=== PATIENT | male | born 1975 | race Caucasian/White ===

== ENCOUNTER 2018-06-05 12:19 | Emergency (ER) | payer SELFPAY ==
[2018-06-05 12:31] VITALS: BP 133/87
--- NOTE | 2018-06-05 14:01 | ER Document Report ---
ED Medical Screen (RME) - General Chief Complaint: Chest Pain Stated Complaint: CHEST PAIN Time Seen by Provider: 06/05/18 13:57 Mode of Arrival: Ambulatory Information source: Patient Notes: Patient is a 43-year-old male presented to the emergency department severe right sided chest pain is been ongoing for approximately 3 weeks. He also reports associated shortness of breath and states that he cannot get a full breath and that the pain increases anytime he tries taking a deep breath. Patient denies any trauma to this area recently. He does report many years ago he had what he believes a rib fractures to the left side and this feels similar. Patient will be sent straight for ribs with chest x-ray as patient is also tall and skinny so he has had a risk for spontaneous pneumothorax. He does have lung sounds present however they are diminished due to his being unable to take a deep breath. I have greeted and performed a rapid initial assessment of this patient. A comprehensive ED assessment and evaluation of the patient, analysis of test results and completion of the medical decision making process will be conducted by additional ED providers. Dictation of this chart was performed using voice recognition software; therefore, there may be some unintended grammatical errors. TRAVEL OUTSIDE OF THE [place] IN LAST 30 DAYS: No - Related Data Allergies/Adverse Reactions: No Known Allergies Allergy (Unverified 10/18/15 08:25) Physical Exam - Vital signs Vitals: Temp Pulse Resp BP Pulse Ox 98.0 F 58 L 16 133/87 H 96 06/05/18 12:28 06/05/18 12:06/05/18 12:06/05/18 12:06/05/18 12:28 Course - Vital Signs Vital signs: Temp Pulse Resp BP Pulse Ox 98.0 F 58 L 16 133/87 H 96 06/05/18 12:28 06/05/18 12:28 06/05/18 12:28 06/05/18 12:28 06/05/18 12:28
--- NOTE | 2018-06-05 14:37 | EKG REPORT ---
SEVERITY:- NORMAL ECG - SINUS RHYTHM : Confirmed by: Cyndy Joseph 05-Jun-2018 14:36:51
--- NOTE | 2018-06-05 14:48 | RADIOLOGY REPORT (SQ) ---
EXAM DESCRIPTION: RIBS RIGHT W/PA CHEST COMPLETED DATE/TIME: 06/05/2018 2:32 pm REASON FOR STUDY: right anterior rib pain, sob COMPARISON: None. TECHNIQUE: Frontal view of the chest and additional views of the right ribs acquired. NUMBER OF VIEWS: Five view. LIMITATIONS: None. FINDINGS: FRONTAL CXR: No pneumothorax. No pleural effusion. No atelectasis or infiltrates. RIBS: No displaced rib fractures. No lytic or blastic bony lesions. OTHER: No other significant finding. IMPRESSION: NO PNEUMOTHORAX. NO DISPLACED RIB FRACTURES. COMMENT: SITE OF TRAUMA/COMPLAINT MARKED/STAMP COMPLETED: NO. TECHNICAL DOCUMENTATION: JOB ID: [id number] [employer]- All Rights Reserved Reading location - IP/workstation name: [email or web address]
[2018-06-05] MEDS ORDERED: HYDROCODONE/ACETAMINOPHEN 5-325 MG TABLET PO ONE (21:58)
[2018-06-05] MEDS ORDERED: KETOROLAC TROMETHAMINE 10 MG TABLET PO ONE (21:58)
--- NOTE | 2018-06-06 15:44 | ER Document Report ---
ED General - General Chief Complaint: Chest Pain Stated Complaint: CHEST PAIN Time Seen by Provider: 06/05/18 13:57 Mode of Arrival: Ambulatory Information source: Patient, [facility] Records Notes: Patient is a 43-year-old male presented to the emergency department severe right sided chest pain is been ongoing for approximately 3 weeks. He also reports associated shortness of breath and states that he cannot get a full breath and that the pain increases anytime he tries taking a deep breath. Patient denies any trauma to this area recently. He does report many years ago he had what he believes a rib fractures to the left side and this feels similar. Patient will be sent straight for ribs with chest x-ray as patient is also tall and skinny so he has had a risk for spontaneous pneumothorax. He does have lung sounds present however they are diminished due to his being unable to take a deep breath. TRAVEL OUTSIDE OF THE [place] IN LAST 30 DAYS: No - HPI Onset: Other Onset/Duration: Gradual, Persistent, Worse Quality of pain: Stabbing Severity: Moderate Pain Level: 3 Associated symptoms: Chest pain, Productive cough, Hurts to breath, Shortness of breath. denies: Nonproductive cough, Leg swelling, Nausea, Vomiting Exacerbated by: Movement, Coughing Relieved by: Denies Similar symptoms previously: Yes Recently seen / treated by doctor: No - Related Data Allergies/Adverse Reactions: No Known Allergies Allergy (Unverified 10/18/15 08:25) Past Medical History - General Information source: Patient - Social History Smoking Status: Current Every Day Smoker Cigarette use (# per day): Yes - 15 Smoking Education Provided: Yes - Smoking cessation counseling was provided for 4 minutes at the bedside Frequency of alcohol use: Occasional Drug Abuse: None Lives with: Friend Family History: Reviewed & Not Pertinent Patient has suicidal ideation: No Patient has homicidal ideation: No - Medical History Medical History: Negative Renal/ Medical History: Denies: Hx Peritoneal Dialysis Review of Systems - Review of Systems Notes: REVIEW OF SYSTEMS: CONSTITUTIONAL : Denies fever, chills, or sweats. Denies recent illness. Denies weight loss, recent hospitalizations. EENT: Denies visual changes, eye pain. Denies sore throat, oral lesions, difficulty swallowing. CARDIOVASCULAR: Denies palpitations. Denies lower extremity edema. RESPIRATORY: Denies wheezing. GASTROINTESTINAL: Denies abdominal pain or distention. Denies nausea, vomiting, or diarrhea. Denies blood in vomitus, stools, or per rectum. Denies black, tarry stools. Denies constipation. GENITOURINARY: Denies difficulty urinating, painful urination, frequency, blood in urine, testicular pain or penile discharge. MUSCULOSKELETAL: Denies back or neck pain or stiffness. Denies joint pain or swelling. SKIN: Denies rash, lesions or sores. HEMATOLOGIC : Denies easy bruising or bleeding. LYMPHATIC: Denies swollen glands. NEUROLOGICAL: Denies confusion or altered mental status. Denies loss of consciousness. Denies dizziness or lightheadedness. Denies headache. Denies weakness or paralysis. Denies problems difficulty with ambulation, slurred speech. Denies sensory loss, numbness, or tingling. Denies seizures. PSYCHIATRIC: Denies anxiety or stress. Denies depression, suicidal ideation, or Physical Exam - Vital signs Vitals: Temp Pulse Resp BP Pulse Ox 98.0 F 58 L 16 133/87 H 96 06/05/18 12:28 06/05/18 12:28 06/05/18 12:28 06/05/18 12:28 06/05/18 12:28 - Notes Notes: PHYSICAL EXAMINATION: GENERAL: Well-appearing, well-nourished and in no acute distress. HEAD: Atraumatic, normocephalic. EYES: Pupils equal round and reactive to light, extraocular movements intact, sclera anicteric, conjunctiva are normal. ENT: Nares patent, oropharynx clear without exudates. Moist mucous membranes. NECK: Normal range of motion, supple without lymphadenopathy LUNGS: Breath sounds clear to auscultation bilaterally and equal. No wheezes rales or rhonchi. HEART: Regular rate and rhythm without murmurs ABDOMEN: Soft, nontender, nondistended abdomen. No guarding, no rebound. No masses appreciated. Musculoskeletal: Normal range of motion, no pitting or edema. No cyanosis. NEUROLOGICAL: Cranial nerves grossly intact. Normal speech, normal gait. Normal sensory, motor exams PSYCH: Normal mood, normal affect. SKIN: Warm, Dry, normal turgor, no rashes or lesions noted. Course - Re-evaluation Re-evalutation: 06/07/18 10:47 Ribs w/Chest X-Ray 06/05/18 13:59 IMPRESSION: NO PNEUMOTHORAX. NO DISPLACED RIB FRACTURES. Temp Pulse Resp BP Pulse Ox 98.0 F 58 L 16 133/87 H 96 06/05/18 12:28 06/05/18 12:28 06/05/18 12:06/05/18 12:28 06/05/18 12:28 06/07/18 10:48 43-year-old male presents with several weeks of right-sided chest pain, associated shortness of breath. Vital signs reviewed and within normal limits upon arrival. Patient does not appear toxic or dehydrated. He is in no acute distress. EKG and chest x-ray ordered by the provider in triage was reviewed. Because of the patient's 30-year smoking history I spoke to him regarding obtaining cardiac enzymes which the patient was initially agreeable to but when I went back to check on the patient he had eloped. - Vital Signs Vital signs: Temp Pulse Resp BP Pulse Ox 98.0 F 58 L 16 133/87 H 96 06/05/18 12:28 06/05/18 12:06/05/18 12:06/05/18 12:06/05/18 12:28 - Diagnostic Test Radiology reviewed: Image reviewed, Reports reviewed - EKG Interpretation by Me EKG shows normal: Sinus rhythm Rate: Normal Rhythm: NSR When compared to previous EKG there are: Previous EKG unavailable Discharge - Discharge Clinical Impression: Shortness of breath Chest pain Qualifiers: Chest pain type: unspecified Qualified Code(s): R07.9 - Chest pain, unspecified Condition: Good Disposition: ELOPED Instructions: Chest Pain of Unclear Cause ([facility]) Forms: Smoking Cessation Education, Elevated Blood Pressure
== END 2018-06-05 23:00 | disposition left against medical advice (07) ==
LOC: ER 12:19
DX: R07.9 Chest pain, unspecified (principal); R07.1 Chest pain on breathing; R06.02 Shortness of breath; R05 Cough; F17.210 Nicotine dependence, cigarettes, uncomplicated; Z71.6 Tobacco abuse counseling; Z53.20 Procedure and treatment not carried out because of patient's decision for unspecified reasons
CPT/HCPCS: 93005; 93010; 99281